=== PATIENT | male | born 1985 | race Caucasian/White ===

== ENCOUNTER 2018-09-22 12:12 | Emergency (ER) | payer SELFPAY ==
[~2018-09-22] VITALS: Ht 162.6 cm; Wt 63.0 kg
--- NOTE | 2018-09-22 12:41 | NUR ---
"FOR THE LAST MONTH AND A HALF I'VE HAD REALLY BAD STOMACH PROBLEMS. I'VE BEEN THROWING UP A LOT. I'VE BEEN UNDER A LOT OF STRESS AND JUST STOPPED CHEWING." GENERALIZED ABD PAIN WITH INTERMITTENT ABD PAIN/LOOSE STOOL. DENIES FEVERS. HX OF APPENDECTOMY A CHILD APPEARS WELL/VITALS STABLE W/ EXCEPTION OF HR AT 100. TO DISCUSS WITH MD IF PATIENT NEEDS PIV
[2018-09-22] MEDS ORDERED: FAMOTIDINE 20 MG TABLET ONE (12:53)
[2018-09-22] MEDS ORDERED: MAALOX/HYOSCYAMINE/LIDOCAINE 45 ML BTL ONE (12:53)
[2018-09-22] MEDS ORDERED: MAALOX/HYOSCYAMINE/LIDOCAINE 45 ML BTL PO ONE (13:00)
[2018-09-22] MEDS ORDERED: FAMOTIDINE 20 MG TABLET PO ONE (13:00)
[2018-09-22 13:02] LABS: BASOPHILS # (AUTO) 0.02 x10^3/uL (0-0.1); BASOPHILS % (AUTO) 0 % (0-1); EOSINOPHILS # (AUTO) 0.22 x10^3/uL (0-0.4); EOSINOPHILS % (AUTO) 3 % (1-7); LYMPHOCYTES # (AUTO) 1.81 x10^3/uL (1-3.4); LYMPHOCYTES % (AUTO) 24 % (22-44); MD NO; MEAN CORPUSCULAR HEMOGLOBIN 30.7 pg (27.5-34.5); MEAN CORPUSCULAR HGB CONC 34.5 g/dL (33.2-36.2); MEAN CORPUSCULAR VOLUME 89.2 fL (81-97); MEAN PLATELET VOLUME 8.4 fL (7.4-10.4); MONOCYTES # (AUTO) 0.49 x10^3/uL (0.2-0.8); MONOCYTES % (AUTO) 7 % (2-9); NEUTROPHILS # (AUTO) 4.85 x10^3/uL (1.8-6.8); NEUTROPHILS % (AUTO) 66 % (42-75); PLATELET COUNT 259 x10^3/uL (130-400); RED BLOOD COUNT 5.24 x10^6/uL (4.38-5.82); RED CELL DISTRIBUTION WIDTH 12.9 % (9.4-14.8)
[2018-09-22 13:11] LABS: CHLORIDE 108 mmol/L (98-107)
[2018-09-22 13:22] LABS: ALANINE AMINOTRANSFERASE 20 U/L (12-78); ALBUMIN 3.7 g/dL (3.4-5.0); ALKALINE PHOSPHATASE 75 U/L (45-117); ANION GAP 4 mmol/L (5-15); BILIRUBIN,TOTAL 0.1 mg/dL (0.2-1.0); CALCIUM 9.1 mg/dL (8.5-10.1); CREATININE 0.91 mg/dL (0.7-1.3); TOTAL PROTEIN 6.8 g/dL (6.4-8.2)
--- NOTE | 2018-09-22 13:45 | NUR ---
WITH REASSESSMENT PATIENT REPORTS ABD PAIN IMPROVED TO 1/10 TAKING WATER W/OUT DIFFICULTY HR NOTED TO BE 80 NOW WELL UPDATED ON POC CALL SANCHEZ IN HAND/SIDE RAILS UP
[2018-09-22 13:55] VITALS: BP 137/71
--- NOTE | 2018-09-22 13:56 | NUR ---
TASK RN: Patient/Caregiver given discharge instructions and they have confirmed that they understand the instructions. Patient ambulatory with steady gait.
== END 2018-09-22 14:06 | disposition home or self-care (01) ==
LOC: ED 13:52
DX: K25.3 Acute gastric ulcer without hemorrhage or perforation (principal); B96.81 Helicobacter pylori [H. pylori] as the cause of diseases classified elsewhere
CPT/HCPCS: 36415; 80053; 83690; 85025; 86677; 99283